=== PATIENT | male | born 1960 | race African-American/Black ===

== ENCOUNTER 2023-06-15 09:28 | Day surgery (SDC) | payer BC, OTHER, SELFPAY ==
[2023-06-11 12:09] VITALS: BMI 27.5
[2023-06-15] VITALS (10 sets, daily range): BP systolic 142–180; BP diastolic 69–99; PULSE 73–90; RESP 16–20; TEMP 36.2–43; O2SAT 95–99
[2023-06-15] MEDS: LACTATED RINGERS 1000ML 1,000 ML 25 ML IV (09:46)
--- NOTE | 2023-06-15 10:05 | P.PNANES_ITS ---
[facility] Disclaimer: The information contained in this section may have been updated after the patient was seen, as this information can be updated by other users. Medical History Hernia Anxiety and depression Sleep apnea History of COVID-19 Hypertension Prostate cancer Surgical History H/O tooth extraction History of prostatectomy History of hip surgery History of back surgery History of colonoscopy Family History Other Anxiety and depression Cancer Diabetes Heart attack Hernia Hypertension Social History Smoking Status: Current every day smoker alcohol intake: never substance use type: denies use current occupational status: retired Travel in the last 8 weeks: None [facility] Anesthesia Checklist Patient Identification Patient Identification: Arm Band and Verbal (Name & ) Structural Data Admitted From: Home Planned Operative Procedure/s: Lap. ISABELLA. IHR Consent for Planned Operative Procedure(s) Verified: Yes Verified Documents: Surgical Consent and History and Physical NPO Status Verified Time NPO: 00:00 Chart Verification Results Verified: CBC and BMP Additional verifications Patient : No Anesthesia Reactions: No Cardiovascular Assessment Heart Sounds: S1 & S2 Pulse Rhythm: Irregular Peripheral Edema: No Airway Assessment Mallampati Score:: Class II C-Spine Mobility Assessed: Yes TMJ Mobility Assessed: Yes Dentition: Poor Dentition (+Missing teeth. Top front teeth veneered) Neurological Assessment Level of Consciousness: Awake, Alert, Appropriate and Follows Commands Hx Seizures: No Numbness or tingling in extremities: No Anesthesia Plan Anesthesia Risk discussed: Yes Anesthesia Plan: Verified ASA Class: III Anesthesia Type: General
[2023-06-15] MEDS: LIDOCAINE 1% 20ML MDV 20 ML (10:42)
[2023-06-15] MEDS: CEFAZOLIN SODIUM 2 GM in 0.9 % SODIUM CHLORIDE 100 ML IV (11:06)
[2023-06-15] MEDS: ROPIVACAINE 0.5% 30ML VIAL 150 MG (11:07)
--- NOTE | 2023-06-15 13:11 | SUR.OPER ---
1245- MD gave verbal orders to go open for the rest of the surgery. Open instruments prepared and count performed. All counts correct. 1255- incision made for right open inguinal hernia repair.
--- NOTE | 2023-06-15 13:50 | SUR.OPER ---
1349- attempted to call sister of the patient, no answer. Attempted to leave voice message but inbox was full. 1400- S Johnny RN (OR charge) updated family in person.
--- NOTE | 2023-06-15 14:19 | EXP.ANES.I ---
[facility] Anesthesia Record Part I Anesthesia Record I Intake, IV Amount: 2,600 Hydration: Adequate Estimated blood loss (mL): 0 Urine output (mL): 100 Blood Pressure: 142/97 SaO2: 95 Pulse Rate: 90 Airway Patency: Patent Respiratory Rate: 16 Temperature: 97.8 F Patient is:: Awake and Stable Stable to PACU at:: 14:15
--- NOTE | 2023-06-15 14:21 | P.OP_ITS ---
Date of procedure: 06/15/23 Pre-op Diagnosis:: Possible bilateral inguinal hernias Post-op Diagnosis:: Right inguinal hernia Procedure performed:: 1. Laparoscopy 2. Open right inguinal hernia repair Surgeon:: Patrick Zhou MD STORE KEEPER:: Rai Reina Anesthesia: GETA Estimated blood loss (mL): 35 Clinical Note:: Patient presents for hernia surgery. He is a 62-year-old male who resides in [place] referred by Dr. Ar Lombardo for right inguinal hernia and initially seen in the office on 05/19/2023. Patient states that over about 3-4 months he had felt a discomfort and pain in the right groin area with coughing. He has had some increased swelling over the past 3 weeks. No evidence of any issues on the left side. Patient has previously undergone robotic da Daniel prostatectomy. He has had back surgery and left hip surgery. He had undergone abdominal surgery as a child through transverse incision to the right of the umbilicus. Patient has had some lumbar back issues and has seen pain management and consideration is being given for possible nerve stimulator implantation for which he has an upcoming appointment. He would like to pursue hernia surgery as soon as possible for this reason. When I had initially seen the patient I had begun discussion for possible open right inguinal hernia repair as he appeared to likely have unilateral hernia with no hernia clinically on the left and no symptomatology. Patient adamantly, strongly, wish to pursue laparoscopic repair. I did inform him that when there is a unilateral non-recurrent hernia laparoscopic repair usually offers no benefit and is actually not indicated and ironically would likely carry more recovery time then open hernia repair. However, he vehemently wished to pursue possible laparoscopic repair. I discussed the options with him. Plan was to obtain a CT scan to evaluate the nature and details of the hernia and assess for possible subclinically detected left inguinal hernia. He wished to have this CT scan done at [facility] and declined having this performed at [facility]. CT report reads small left and probable tiny fat-containing inguinal hernias. Within the body of the report it appears as though there is a left inguinal hernia with probable small right inguinal hernia. However, clinically the patient had findings and symptoms consistent with definite right inguinal hernia with no definite symptoms or findings consistent with left inguinal hernia. Symptoms and findings consistent with hernia on examination have always been more prominent on the right side. Patient continues to strongly desire an attempt at laparoscopic approach. I felt that this could be reasonable given the suggestion of possible bilateral hernias on imaging. Plan was made to proceed with possible bilateral laparoscopic inguinal hernia repair with con centration on the right side with possible open procedure. I did explain to the patient if open procedure is needed would recommend and plan for merely right- sided repair as possibility of left inguinal hernia on imaging and clinical examination was questionable. . Operative findings:: He had a moderate indirect right inguinal hernia. There was no definite evidence of hernia on the left side. There was extensive adhesions in the suprapubic location from prior prostatectomy and landmarks including Charly's ligament were never able to be identified. Ultimately it was determined that bladder was actually retracted posteriorly. Repair was not feasible or safe laparoscopically. Operative note:: Consent was obtained and patient was taken the operating room. He was given preoperative intravenous antibiotics. In the operating room he was placed in a supine position. General anesthesia was induced via endotracheal tube. Abdomen and perineum were prepped and draped in the standard surgical fashion. Subumbilical skin incision was made. Dissection was carried down through subcutaneous tissues to the anterior rectus fascia which was incised to the right of the linea alba. The rectus muscles were identified and retracted laterally. Preperitoneal space was entered. Dissecting balloon trocar was inserted and inflated under laparoscopic visualization dissecting out the preperitoneal space. It was then removed and replaced with structural balloon trocar. At this time a couple 5 mm trocars were inserted in the midline inferior to the umbilicus. There was unavoidable disruption of the integrity of the balloon from one of the trocars and it was replaced with a second structural balloon. Dissection was carried out on the right side. Landmarks were difficult to discern as it appeared as though there were dense preperitoneal adhesions in the suprapubic location likely from previous prostatectomy. Very prolonged dissection was carried out and the cord structures were able to be identified as were the inferior epigastric vessels. Dissection was carried out of the cord and ultimately the hernia sac was identified. He had a rather thickened hernia sac. This was able to be dissected free from the cord structures. However medial dissection in the suprapubic location was unable to be clearly performed. Attempt was made to identify structures on the left. Dissection was carried out in a similar fashion but there were extensive extraperitoneal adhesions at the suprapubic location. There was no evidence of any definite hernia on the left. Further dissection was carried out on the right and Charly's ligament and pubic tubercle were never able to be clearly david ntified. It was unclear if the bladder was actually retracted posteriorly. Therefore nursing instilled sterile water via the Wen catheter to fill the bladder. It appeared as though it was actually dissected and retracted posteriorly due to adhesions. Bladder was then drained. Given the lack of ability to identify sena structures, and due to the adhesions prohibiting adequate mesh placement to allow for adequate repair, and due to the potential for possible bladder injury should dissection be continued, and due to the fact that there was no definite hernia on the left, decision was made for open procedure to repair the right inguinal hernia. Trocars were removed. Oblique incision was made in the right inguinal crease superior to landmarks identifying the inguinal ligament. Dissection was carried down through subcutaneous tissues and Nishi's fascia using electrocautery. External oblique muscle was cleaned free of extraneous fibers. External oblique muscle was opened along the length of its fibers. Underlying cord structures were identified and dissected free from the floor of the inguinal canal. The ilioinguinal nerve was identified and preserved. Dissection was carried out of the cord and there was no evidence of any residual hernia sac as it had been previously dissected free and returned to its normal anatomic position during the extraperitoneal laparoscopic portion of the procedure. Repair was performed with a large sized Bard prefix mesh. Mesh plug was not utilized as it was unnecessary. Mesh was secured to Charly's ligament and along the shelving edge of the inguinal ligament with a running 2-0 PDS suture. It was secured superior medially to transversalis with interrupted 2-0 PDS horizontal mattress sutures with a few simple interrupted sutures. The 2 tails of the mesh were used to encircle the cord structures and nerve and sutured to 1 another with several interrupted 2-0 PDS to reconstruct the internal ring. Cord structures and inguinal nerve were returned to normal anatomic position. Wound was irrigated. Local anesthetic was infiltrated. External oblique muscle was closed over the cord structures with a running 2-0 Vicryl. Nishi's fascia was closed with running 2-0 Vicryl. Skin was closed with 4-0 Monocryl in a running subcuticular fashion. At this time the posterior fascia at the umbilicus from laparoscopic portion of the procedure was elevated. It was incised as was the peritoneum and peritoneal cavity was entered. Any residual intra-abdominal gas was evacuated. Anterior rectus fascia at the umbilical incision was closed with a couple of 0 Vicryl sutures. Local anesthetic was infiltrated. Skin incisions were closed with 4-0 Monocryl in a subcuticular fashion. Dermabond and dressings were applied. . Condition: stable Disposition: PACU Complications:: None immediately apparent.
[2023-06-15 14:23] LABS: Microscopic,Cath URINE MICROSCOPIC (MICROSCOPIC)
[2023-06-15 14:28] LABS: Appearance,Urine/Cath CLEAR (Clear); Bilirubin,Cath Negative (Negative); Blood, Urine/Cath Negative (Negative); Color,Urine/Cath YELLOW (Yellow); Glucose,Urine/Cath (UA) Negative (Negative); Ketones,Urine/Cath Negative (Negative); Leukocyte Esterase,Cath Negative (Negative); Nitrate,Cath Negative (Negative); Protein,Urine/Cath TRACE (Negative); Specific Gravity, Urine/Cath 1.025 (1.005-1.030); Urobilinogen,Cath 0.2 EU/dl (0.2)
[2023-06-15 15:14] LABS: RBC,Urine/Cath Occasional # /hpf (0-3); Squamous Epithelial Ur./Cath Occasional #/hpf (0-5)
--- NOTE | 2023-06-19 13:43 | EXP.ANES.II ---
[facility] Anesthesia Record Part II Anesthesia Record Part II Discharge Time: 14:45 Destination: Surgical Day Care (OP Surgery) PACU nurse assessment reviewed?: Yes Patient Condition:: Good Anesthesia Complications:: None Swallowing reflex intact?: Yes Airway Patency: Patent Cyanosis?: No Blood Pressure: 180/88 SaO2: 99 Respiratory Rate: 20 Pulse Rate: 79 Temperature: 97.1 F Mental Status: Alert & Oriented Pain level:: 0 Nausea and/or vomitting:: None Intake, IV Amount: 0 Hydration: Adequate
[2023-06-19 13:44] VITALS: BP 180/88; PULSE 79; RESP 20; TEMP 36.2; O2SAT 99
== END 2023-06-15 15:23 | disposition home or self-care (01) ==
PROVIDERS: PCP Family Medicine; Visit Provider Surgery
PROC: (CPT 49650; principal; 2023-06-15 10:45)
DX: K40.90 Unilateral inguinal hernia, without obstruction or gangrene, not specified as recurrent (principal); R10.813 Right lower quadrant abdominal tenderness; Z90.79 Acquired absence of other genital organ(s); Z53.31 Laparoscopic surgical procedure converted to open procedure
CPT/HCPCS: 49505; 81001; 96374; J2405